=== PATIENT | female | born 1995 | race Caucasian/White ===

== ENCOUNTER 2016-07-22 18:31 | Emergency (ER) | payer OTHER ==
[~2016-07-22] VITALS: Ht 160 cm; Wt 59.0 kg
--- NOTE | 2016-07-22 19:07 | ED SYNCOPE COMPLAINT ---
History of Present Illness General Chief Complaint: Syncope and Near-Syncope Stated Complaint: BIBA WITH A SYCOPE Source: patient, friend Exam Limitations: no limitations Vital Signs & Intake/Output Vital Signs & Intake/Output Vital Signs Date Time Temp Pulse Resp B/P B/P Pulse O2 O2 Flow FiO2 Mean Ox Delivery Rate 07/228 77 101/53 07/22 1840 97.6 62 15 100/60 96 Room Air Room Air Allergies Coded Allergies: No Known Allergies (07/22/16) Triage Note: PT TO ED S/P SYNCOPAL EPISODE. PT WAS SHOPPING AND GOT SUDDEN ONSET MIDEPIGASTRIC STOMACH PAIN. PT HAS FELT NAUSEAS ALL DAY, BUT REPORTS +SYNCOPAL EPISODE, WOKE UP DIAPHORETIC AND PALE. PT ARRIVES PALE AND SLIGHTLY DIAPOHRETIC WITH IMPROVEMENT IN COLOR. PT HAD WISDOM TEETH TAKEN OUT WEDNESDAY AND TOOK PERCOCET TODAY AROUND 2:30. Triage Nurses Notes Reviewed? yes : No Patient currently breastfeeds: No HPI: Patient was shopping when she suddenly got a sharp stabbing pain in her right upper quadrant followed by nausea. Patient felt well she would pass out. Patient left the store and had to sit down. The patient then attempted to get her car and she was brought up with gynecology and had to sit down and felt that she had to lay down and had a witnessed syncopal episode. Patient continues to have pain in the right upper quadrant however it is much decreased. Patient denies any chest pain or shortness of breath. At its worst the pain was 10 out of 10 and is currently on 4 out of 10. Patient remained nauseous. No diarrhea. There is no dysuria. There is no radiation of the pain. Past History Travel History Traveled to [place] past 21 day No Medical History Any Pertinent Medical History? none Neurological: NONE EENT: NONE Cardiovascular: NONE Respiratory: NONE Gastrointestinal: NONE Hepatic: NONE Renal: NONE Musculoskeletal: NONE Psychiatric: NONE Endocrine: NONE Blood Disorders: NONE Cancer(s): NONE GUM PULLER/Reproductive: NONE Surgical History Surgical History: non-contributory Psychosocial History What is your primary language Moh[place] Tobacco Use: Never used ETOH Use: denies use Illicit Drug Use: denies illicit drug use Family History Hx Contributory? No Review of Systems Review of Systems Constitutional: Reports: no symptoms. EENTM: Reports: no symptoms. Respiratory: Reports: no symptoms. Cardiovascular: Reports: no symptoms. GI: Reports: see HPI, abdominal pain, nausea. Genitourinary: Reports: no symptoms. Musculoskeletal: Reports: no symptoms. Skin: Reports: no symptoms. Neurological/Psychological: Reports: no symptoms. All Other Systems: Reviewed and Negative Physical Exam Physical Exam General Appearance: well developed/nourished, alert, awake, anxious, moderate distress Head: atraumatic, normal appearance Eyes: Bilateral: PERRL, EOMI. Ears, Nose, Throat: normal pharynx, normal ENT inspection Neck: normal inspection, supple, full range of motion Respiratory: normal breath sounds, chest non-tender, no respiratory distress, lungs clear Cardiovascular: regular rate/rhythm, normal peripheral pulses Gastrointestinal: normal bowel sounds, soft, no organomegaly, tenderness (RUQ) Back: normal inspection, normal range of motion Extremities: normal inspection, normal capillary refill, normal range of motion Psychiatric: awake, alert, oriented x 3 Cranial Nerves: normal hearing, normal speech, PERRL Motor/Sensory: no motor/sensory deficits Core Measures ACS in differential dx? No CVA/TIA Diagnosis: No Severe Sepsis Present: No Septic Shock Present: No Progress Differential Diagnosis: orthostatic syncope, pulmonary embolus, sick sinus syndrome Plan of Care: Orders Procedure Date/time Status MISTAKE 07/22 190 Active EKG 07/22 1840 Active HUMAN BETA HCG SCREEN 07/22 1837 Complete COMPREHENSIVE METABOLIC PANEL 07/22 1837 Complete CBC WITHOUT DIFFERENTIAL 07/22 1837 Complete Laboratory Tests 07/22/16 1925: Anion Gap 10, Estimated GFR > 60, BUN/Creatinine Ratio 22.2, Glucose 75, Calcium 9.1, Total Bilirubin 0.7, AST 20, ALT 32, Alkaline Phosphatase 49, Total Protein 6.8, Albumin 4.1, Globulin 2.7, Albumin/Globulin Ratio 1.5, Total Beta HCG NEGATIVE, CBC w Diff NO MAN DIFF REQ, RBC 4.51, MCV 86.8, MCH 29.9, RDW 12.0, MPV 7.8, Gran % 60.9, Lymphocytes % 35.7, Monocytes % 2.9, Eosinophils % 0.3, Basophils % 0.2, Absolute Granulocytes 8.6 H, Absolute Lymphocytes 5.0 H, Absolute Monocytes 0.4, Absolute Eosinophils 0, Absolute Basophils 0, PUBS MCHC 34.5 Diagnostic Imaging: Viewed by Me: Ultrasound. Discussed w/RAD: Ultrasound. Radiology Impression: PATIENT: MIRANDA WOOD PRESENT AGE: 20 PATIENT ACCOUNT NO: [id number] : 96 LOCATION: [facility] ORDERING PHYSICIAN: PAPO NOGUERA MD SERVICE DATE: 07/22/16 EXAM TYPE: US - US-LIMITED ABDOMEN EXAMINATION: US ABDOMEN LIMITED CLINICAL INFORMATION: Right upper quadrant pain. COMPARISON: None TECHNIQUE: Real-time imaging of the right upper quadrant abdominal viscera. FINDINGS: PANCREAS: Normal. LIVER: Normal. The liver demonstrates normal size, contour and echogenicity. No focal lesion or intrahepatic biliary duct dilatation. GALLBLADDER: Normal. The gallbladder is physiologically distended without evidence of stones, sludge, polyps, wall thickening or pericholecystic fluid. COMMON BILE DUCT: Normal in caliber measuring 0.3 cm in diameter. RIGHT KIDNEY: Normal. No hydronephrosis. No renal calculi or focal parenchymal lesions. The kidney measures 10.4 cm in maximum dimension. FREE FLUID: None. IMPRESSION: Unremarkable examination. DICTATED BY: CARL POLLACK MD DATE/TIME DICTATED: 07/22/162138 FUR BLOWING MACHINE ATTENDANT:GRETA DATE/TIME TRANSCRIBED:07/22/162138 CONFIDENTIAL, DO NOT COPY WITHOUT APPROPRIATE AUTHORIZATION. <Electronically signed in Other Vendor System> SIGNED BY: CARL POLLACK MD 07/22/162145 Initial ED EKG: NSR, no ST T wave changes Comments: POSITIVE ORTHOSTATIC CHANGES Orthostatic changes resolved after 2 L of fluid. On reexamination there is no abdominal pain. Departure Departure Disposition: HOME OR SELF CARE Condition: Stable Clinical Impression Primary Impression: Vasovagal syncope Secondary Impressions: Upper abdominal pain, unspecified Referrals: CEDRIC GAMBOA,YURIY Henry (PCP/Family) Additional Instructions: RETURN IF SYMPTOMS WORSEN OR FOR ANY CONCERNS Departure Forms: Customer Survey General Discharge Information
[2016-07-22 19:33] LABS: ABSOLUTE BASOPHIL COUNT 0 /CUMM (0.0-0.2); ABSOLUTE EOSINOPHIL COUNT 0 /CUMM (0.0-0.7); ABSOLUTE GRANULOCYTE CT 8.6 /CUMM (1.4-6.5); ABSOLUTE MONOCYTE COUNT 0.4 /CUMM (0.10-0.60); BASOPHIL % 0.2 % (0.0-2.0); EOSINOPHIL % 0.3 % (0-5); HEMATOCRIT 39.2 % (37-47); MEAN CORPUSCULAR HGB 29.9 PG (27.0-31.0); MEAN CORPUSCULAR HGB CONC 34.5 G/DL (33.0-37.0); MEAN CORPUSCULAR VOLUME 86.8 FL (81.0-99.0); MEAN PLATELET VOLUME 7.8 FL (7.4-10.4); PLATELET COUNT 208 /CUMM (130-400); RED BLOOD CELL CT 4.51 /CUMM (4.20-5.40)
[2016-07-22 19:35] LABS: GRANULOCYTE % 60.9 % (42.2-75.2)
--- NOTE | 2016-07-22 21:46 | ULTRASOUND REPORT ---
EXAMINATION: US ABDOMEN LIMITED CLINICAL INFORMATION: Right upper quadrant pain. COMPARISON: None TECHNIQUE: Real-time imaging of the right upper quadrant abdominal viscera. FINDINGS: PANCREAS: Normal. LIVER: Normal. The liver demonstrates normal size, contour and echogenicity. No focal lesion or intrahepatic biliary duct dilatation. GALLBLADDER: Normal. The gallbladder is physiologically distended without evidence of stones, sludge, polyps, wall thickening or pericholecystic fluid. COMMON BILE DUCT: Normal in caliber measuring 0.3 cm in diameter. RIGHT KIDNEY: Normal. No hydronephrosis. No renal calculi or focal parenchymal lesions. The kidney measures 10.4 cm in maximum dimension. FREE FLUID: None. IMPRESSION: Unremarkable examination.
[2016-07-22 22:11] VITALS: BP 107/53
== END 2016-07-22 22:12 ==
LOC: ERH 18:31
PROVIDERS: Physician Assistant Medical
DX: R55 Syncope and collapse (principal); R10.11 Right upper quadrant pain
CPT/HCPCS: 93005; 93010; 96361; 96374; J2405